=== PATIENT | male | born 1995 | race Two or more races ===

== ENCOUNTER 2017-06-24 04:24 | Emergency (ER) | payer OTHER ==
[2017-06-24] MEDS ORDERED: Morphine 4 MG/ML Carpuject ONE (04:55)
[2017-06-24] MEDS ORDERED: Adacel (T-DAP) 0.5 ML VIAL ONE (07:34)
[2017-06-24] MEDS ORDERED: HYDROcodone/Acetaminophen 5/325 mg Tablet ONE (09:15)
[2017-06-24] MEDS ORDERED: Bacitracin Zinc 1 Packet ONE ×2 (09:16→09:25)
== END 2017-06-24 10:36 | disposition home or self-care (01) ==
LOC: ERS 04:24
DX: T54.3X1A Toxic effect of corrosive alkalis and alkali-like substances, accidental (unintentional), initial encounter (principal); T23.602A Corrosion of second degree of left hand, unspecified site, initial encounter; F17.210 Nicotine dependence, cigarettes, uncomplicated; Z23 Encounter for immunization
CPT/HCPCS: 90471; 90715; 96374; 99406; J2270

== ENCOUNTER 2017-12-16 08:05 | Emergency (ER) | payer OTHER ==
[2017-12-16 08:44] LABS: Bilirubin Small (Negative); Blood, Urine Large (Negative); Clarity CLOUDY (Clear); Glucose, Urine (Dipstick) Negative (Negative); Leukocyte Negative (Negative); Nitrite Negative (Negative); Protein, Urine (Dipstick) 30 mg/dL (Neg-Trace); Specific Gravity, Urine 1.033 (1.002-1.036)
[2017-12-16 08:48] LABS: Bacteria/HPF None Seen HPF (None Seen); RBC/HPF GREATER THAN 50-TNTC HPF (0-3); Squamous Epithelial 0-3 HPF (0-3)
[2017-12-16 08:59] LABS: Hyaline Casts/LPF 0-3 HYALINE CAST LPF (0-3 Hyaline); Renal Epithelial 0-3 HPF (0-3); Sperm/HPF 1+ HPF (None Seen); Transitional Epithelial 0-3 HPF (0-3)
[2017-12-16 09:00] LABS: Other Casts/LPF 0-3 COARSE GRAN LPF (0-3 Hyaline)
[2017-12-16] MEDS ORDERED: Ketorolac Tromethamine 30 MG/ML VIAL ONE (09:01)
[2017-12-16 09:04] LABS: #Basophils 0.1 thou/uL (0.0-0.2); #Eosinphils 0.3 thou/uL (0.0-0.7); #Lymphocytes 2.4 thou/uL (1.20-3.40); #Neutrophils 8.2 thou/uL (1.40-6.50); %Basophils 0.4 % (0.0-1.0); %Eosinophils 2.2 % (0.0-10.0); %Monocytes 8.3 % (0.0-10.0); %Neutrophils 69.1 % (42.0-75.0); Hemoglobin 16.2 g/dL (14.0-18.0); Mean Corpuscular HGB CONC 34.1 g/dL (32.0-36.0); Mean Corpuscular Hemoglobin 30.7 pg (27.0-31.0); Mean Corpuscular Volume 89.9 fl (80.0-94.0); Mean Platelet Volume 8.3 fL (7.4-10.4); Platelet Count 223 thou/uL (130-400); RBC Distribution Width 12.2 % (11.5-14.5); Red Blood Cell (RBC) Count 5.28 mill/uL (4.70-6.10); White Blood Cell (WBC) Count 11.9 thou/uL (4.8-10.8)
[2017-12-16 09:21] LABS: ALT (SGPT) 14 U/L (8-55); AST (SGOT) 18 U/L (5-34); Albumin 4.2 g/dL (3.5-5.0); Alkaline Phosphatase 71 U/L (40-150); Anion Gap 12 mmol/L (10-20); BUN (Urea Nitrogen) 17 mg/dL (8.9-20.6); Bilirubin, Total 0.6 mg/dL (0.2-1.2); Calc. Creatinine Clearance 0 mL/min (70-130); Calcium 8.7 mg/dL (7.8-10.44); Carbon Dioxide 24 mmol/L (22-29); Chloride 106 mmol/L (98-107); Estimated GFR-MDRD 73; Globulin 2.5 g/dL (2.4-3.5); Glucose 108 mg/dL (70-105); Potassium 3.4 mmol/L (3.5-5.1); Protein, Total 6.7 g/dL (6.0-8.3); Sodium 139 mmol/L (136-145)
--- NOTE | 2017-12-16 11:09 | CT ---
ABDOMEN AND PELVIC CT SCAN WITHOUT IV CONTRAST: HISTORY: A 22-year-old male with a history of left flank pain that began 45 minutes ago. FINDINGS: The lung bases are clear. The liver, gallbladder, pancreas, spleen, and adrenal glands are unremarka ble. There are findings of left perirenal and periureteral fat stranding with some mild to moderate dilatation of the left ureter and upper collecting system. A small nonobstructing left renal calculu s. There are 2 calculi in the left ureter, 1 measuring approximately 0.2 cm in the region of the mid pelvis and another approximately 0.4 cm near the ureterovesicular junction. Normal-appearing append ix. IMPRESSION: Two left ureteral calculi, the most distal near the ureterovesicular junction with some mild to moder ate proximal obstruction. Nonobstructing left renal calculus. No other significant acute process. POS: OFF
== END 2017-12-16 10:22 | disposition home or self-care (01) ==
LOC: ERS 08:05
DX: N20.2 Calculus of kidney with calculus of ureter (principal); F17.210 Nicotine dependence, cigarettes, uncomplicated
CPT/HCPCS: 36415; 74176; 80053; 81003; 81015; 85025; 96374; J1885